=== PATIENT | male | born 1935 | race Caucasian/White ===

== ENCOUNTER → 2016-05-22 | Outpatient (REF) ==
[~2016-05-22] MED LIST: ALEVE 220MG220 MG PO; ASPIRIN 81M81 MG/TA2 PO; BRILINTA90 MG PO; CEPHALEXIN500 M1 PO; FLOMAX 0.40.4 MG/CAP PO; HCTZ 25MG TAB25 MG PO; LEVOXYL0.05 MG PO; MESTINON 6060 MG/TAB PO; NITROSTAT0.4 MG/TAB SL; NORVASC 5MG5 MG/TAB PO; VASOTEC20 MG PO; VESICARE10 MG PO; ZEBETA 5MG5 MG PO; ZEBETA10 MG PO; [UNRECOGNIZED DRUG - OTHER] PO
== END ==
LOC: ZLAB.WCH 16:01
DX: Z01.89 Encounter for other specified special examinations (principal)

== ENCOUNTER → 2016-05-23 | Outpatient (REF) | LOC: ZLAB.WCH 14:54 | DX: Z01.89 Encounter for other specified special examinations (principal) ==

== ENCOUNTER → 2016-06-06 | Outpatient (REF) | LOC: ZLAB.WCH 14:47 | DX: Z01.89 Encounter for other specified special examinations (principal) ==

== ENCOUNTER → 2017-05-21 | Outpatient (REF) ==
[2017-05-21 19:15] LABS: THYROID STIMULATING HORMONE 2.17 uIU/mL (0.465-4.680)
== END ==
LOC: ZLAB.WCH 18:06
PROVIDERS: Internal Medicine
DX: Z01.89 Encounter for other specified special examinations (principal)

== ENCOUNTER → 2018-04-10 | Outpatient (REF) | LOC: ZLAB.WCH 14:22 | DX: Z01.89 Encounter for other specified special examinations (principal) ==

== ENCOUNTER 2020-03-16 11:55 | Inpatient (IN) | payer MEDICARE, OTHER ==
[2020-03-16] VITALS (275 sets, daily range): BP systolic 119–132; BP diastolic 62–75; PULSE 77–80; TEMP 97.6–97.9; O2SAT 76–99
[~2020-03-16] VITALS: Ht 165.1 cm; Wt 97.9 kg
[2020-03-16 12:22] LABS: HEMATOCRIT 42.6 % (42.0-52.0); HEMOGLOBIN 14.7 g/dl (13.5-18.0); MEAN CELL VOLUME 98 fl (80.0-100.0); MEAN CORPUSCULAR HEMOGLOBIN 34 pg (27.0-31.0); MEAN CORPUSCULAR HGB CONC 35 g/dl (33.0-37.0); MEAN PLATELET VOLUME 10.9 fl (7.4-10.4); PLATELET COUNT 177 K/mm3 (130-400); RED BLOOD COUNT 4.35 M/mm3 (4.20-5.60); REDCELL DISTRIBUTION WIDTH-CV 12.8 % (11.5-14.5)
[2020-03-16 12:30] LABS: ARTERIAL BLD GAS O2 SATURATION 93.2 % (92-100); ARTERIAL BLOOD GAS BASE EXCESS -0.2 (-2-2); ARTERIAL BLOOD GAS HCO3 24.7 meq/L (22-26); ARTERIAL BLOOD GAS PCO2 41.6 mmHg (35-45); ARTERIAL BLOOD GAS PO2 64.2 mmHg (80-100); ARTERIAL BLOOD GAS pH 7.39 (7.35-7.45)
[2020-03-16 12:31] LABS: ALBUMIN 3.4 gm/dL (3.5-5.0); BILIRUBIN,TOTAL 1.2 mg/dL (0.0-1.0); CALCIUM 8.6 mg/dL (8.4-10.2); CREATININE, serum 1.54 (0.66-1.25); POTASSIUM 3.4 mmol/L (3.4-5.0); TOTAL PROTEIN 6.4 gm/dL (6.4-8.2)
[2020-03-16 12:40] LABS: BAND 36 % (0-10); NEUTROPHILS 60 % (42.0-75.2); PLATELET ESTIMATE NORMAL (NORMAL)
[2020-03-16] MEDS ORDERED: CARTIA XT240 MG PO (17:29)
[2020-03-16] MEDS ORDERED: CELEXA10 MG PO (17:29)
[2020-03-16] MEDS ORDERED: NAMENDA5 MG (17:30)
[2020-03-16] MEDS ORDERED: ATACAND 16M16 MG/TAB PO (17:30)
[2020-03-16] MEDS ORDERED: MYRBETR50MG PO (17:30)
[2020-03-16] MEDS ORDERED: CATAPRES 0.1MG0.1 MG PO (17:31)
[2020-03-16] MEDS ORDERED: ARICEPT10 MG PO (17:31)
[2020-03-16] MEDS ORDERED: EVOXAC30 MG PO (17:32)
[2020-03-16 21:03] LABS: ARTERIAL BLD GAS O2 SATURATION 89.5 % (92-100); ARTERIAL BLD GAS TCO2 CT 25.1; ARTERIAL BLOOD GAS BASE EXCESS -1.6 (-2-2); ARTERIAL BLOOD GAS HCO3 23.8 meq/L (22-26); ARTERIAL BLOOD GAS PCO2 42.5 mmHg (35-45); ARTERIAL BLOOD GAS PO2 57.2 mmHg (80-100); ARTERIAL BLOOD GAS pH 7.37 (7.35-7.45)
[2020-03-17] VITALS (421 sets, daily range): BP systolic 119–178; BP diastolic 92–103; PULSE 70–97; TEMP 96.6–98.3; O2SAT 43–99
[2020-03-17 02:50] LABS: ARTERIAL BLD GAS O2 SATURATION 88.1 % (92-100); ARTERIAL BLD GAS TCO2 CT 23.2; ARTERIAL BLOOD GAS BASE EXCESS -2.4 (-2-2); ARTERIAL BLOOD GAS HCO3 22.1 meq/L (22-26); ARTERIAL BLOOD GAS PCO2 37.2 mmHg (35-45); ARTERIAL BLOOD GAS PO2 55.1 mmHg (80-100); ARTERIAL BLOOD GAS pH 7.39 (7.35-7.45)
[2020-03-17 05:16] LABS: HEMATOCRIT 41.7 % (42.0-52.0); HEMOGLOBIN 14.1 g/dl (13.5-18.0); MEAN CELL VOLUME 97 fl (80.0-100.0); MEAN CORPUSCULAR HEMOGLOBIN 33 pg (27.0-31.0); MEAN CORPUSCULAR HGB CONC 34 g/dl (33.0-37.0); MEAN PLATELET VOLUME 10.4 fl (7.4-10.4); PLATELET COUNT 189 K/mm3 (130-400); RED BLOOD COUNT 4.28 M/mm3 (4.20-5.60); REDCELL DISTRIBUTION WIDTH-CV 13.1 % (11.5-14.5)
[2020-03-17 05:27] LABS: ALBUMIN 3.3 gm/dL (3.5-5.0); BILIRUBIN,TOTAL 0.7 mg/dL (0.0-1.0); CREATININE, serum 1.5 (0.66-1.25); MAGNESIUM 1.9 mg/dL (1.6-2.3); POTASSIUM 3.5 mmol/L (3.4-5.0); TOTAL PROTEIN 6.2 gm/dL (6.4-8.2)
[2020-03-17 06:02] LABS: BAND 23 % (0-10); LYMPHOCYTE 2 % (20.0-51.0); NEUTROPHILS 69 % (42.0-75.2); PLATELET ESTIMATE NORMAL (NORMAL)
--- NOTE | 2020-03-17 07:15 | NUR ---
RECEIVED REPORT FROM JAX MALCOLM. PT LYING IN BED ON BIPAP WITH FIO2 100%. VSS. CALL LIGHT WITHIN REACH.
--- NOTE | 2020-03-17 08:30 | NUR ---
DR CUEVAS AT BEDSIDE FOR ASSESSMENT. DR CUEVAS DISCUSSES INTUBATION AND CODE STATUS WITH PT AND RT AT BEDSIDE. PT STATES OK TO INTUBATE, RN AND RT MADE AWARE. ANESTHESIA NOTIFIED.
--- NOTE | 2020-03-17 09:25 | NUR ---
PT INTUBATED AT THIS TIME WITH ETT 8.0 21 AT LIP,BP 107/79, HR 103.
--- NOTE | 2020-03-17 09:44 | NUR ---
AFTER OGT INSERTION, TEN MINS LATER POX NOTED TO BE DECREASING WITH RT AND RN AT BEDSIDE. ORAL SUCTION NOTED TO BE EMESIS AND PT COUGHING AGAINST ETT. DR CUEVAS MADE AWARE, NEW ORDERS RECEIVED TO GIVE VECURONIUM 10MG AND THEN ATTEMPT OGT AGAIN BEFORE XRAY DONE. AFTER COMPLETION XRAY PERFORMED, DR CUEVAS LOOKS AT IMAGES AND STATES ETT AND OGT IN PLACE, OK TO USE. OGT SECRUED AT 70 AT LIPS AND PLACED TO LIS. FC PATENT AND DRAINING TO GRAVITY. FOOD SANITARIAN RESTRAINTS IN PLACE. SEE MAR.
[2020-03-17 09:48] LABS: COLLECTION METHOD CLEAN CATCH
[2020-03-17 10:13] LABS: AMORPHOUS CRYSTAL Present /uL; GRANULAR CAST >12 /lpf; PH 5 (5-8); SQUAMOUS EPITHELIAL None Seen /hpf; URINE BACTERIA Rare /hpf; URINE BILIRUBIN Negative (NEGATIVE); URINE BLOOD 1+ (NEGATIVE); URINE COLOR Yellow; URINE GLUCOSE Negative (NEGATIVE); URINE KETONE Negative (NEGATIVE); URINE LEUKOCYTE ESTERASE Negative (NEGATIVE); URINE NITRATE Negative (NEGATIVE); URINE PROTEIN(semi-quant) 2+ (NEGATIVE); URINE RBC 0-2 /hpf; URINE UROBILINOGEN Negative (NEGATIVE)
[2020-03-17 10:16] LABS: URINE APPEARANCE Hazy
--- NOTE | 2020-03-17 10:40 | NUR ---
DISCUSSED POC WITH DR CUEVAS TO TITRATE FIO2 TO KEEP POX 90-93%. RT MADE AWARE.
--- NOTE | 2020-03-17 10:45 | NUR ---
DR ROBLEDO AT BEDSIDE FOR ASSESSMENT.
--- NOTE | 2020-03-17 11:04 | NUR ---
The patient is positive for COVID and is now intubated. SW contacted the patient's son, Sherif (ph#[phone]), to complete intake. The patient lives alone in [place]. Sherif states that him and two of his sisters also live in [place]. Sherif reports that the patient is independent with ADLs and that he does not have any DME. The patient's PCP is Dr. Suraj Mckeon and he receives his medications from [facility]. The patient does not have a DPOA-HC in EMR, but Sherif states that the patient does have one completed and that he believes his three sisters are the patient's DPOA-HC. He states that Dr. Mckeon's office should have a copy of the document, but that he will contact his sisters to make sure they have it. Sherif states that the patient is not and that the patient has five children: Sherif Stein, Mely Shell (ph#[phone]), Lori Benton, Kaylene Green, and Noman Stein. WOLF contacted [facility] and requested a copy of the patient's DPOA-HC. The aircraft landing gear inspector reports that they do have one on file and will fax it to the ICU. SW notified Sherif. Sherif provided SW with Mely's phonen number. Sherif states that Mely has the document and can fax it to as well. WOLF contacted Mely and provided her with the fax number to the ICU. Mely states that she is at work right now and will fax the DPOA-HC to when she returns home. Mely states that she believes the patient's DPOA-HC is all of his children. SW to continue to follow.
[2020-03-17 11:19] LABS: ARTERIAL BLD GAS O2 SATURATION 90.8 % (92-100); ARTERIAL BLD GAS TCO2 CT 23.5; ARTERIAL BLOOD GAS BASE EXCESS -2.7 (-2-2); ARTERIAL BLOOD GAS HCO3 22.3 meq/L (22-26); ARTERIAL BLOOD GAS PCO2 39.6 mmHg (35-45); ARTERIAL BLOOD GAS PO2 58.4 mmHg (80-100); ARTERIAL BLOOD GAS pH 7.37 (7.35-7.45)
--- NOTE | 2020-03-17 12:02 | NUR ---
CONTACTED FIELD MARKETING SPECIALIST TO BRING ANOTHER POX PROBE FOR EAR. NOTED FINGERS ARE COOL TO TOUCH BUT SKIN REMAINS PALE. PEDAL PULSES NOTED +1. PT DOES COUGH WITH ORAL SUCTIONING.
--- NOTE | 2020-03-17 12:05 | NUR ---
RT CALLED TO BRING FOREHEAD PROBE FOR POX BECAUSE HAVING A HARD TIME GETTING A STRONG SIGNAL TO KEEP POX UP ON MONITOR.
--- NOTE | 2020-03-17 12:46 | NUR ---
ROSA CALLS TO FABIOLA PT'S BP 50/30s. RN TO BEDSIDE ALONG WITH RT AND COUNTER SALES REPRESENTATIVE TO FOLLOW OUTSIDE TO MAKE PHONE CALLS, MONITOR, AND ASSIST WITH GRABBING SUPPLIES. BP CUFF REPOSITIONED AND RECHECKED, NOTED BP TO STILL BE 50/30s. DR CUEVAS NOTIIFED BY MALENA, JAX, NEW ORDERS RECEIVED. FIELD PRODUCER AWARE AND TO UNIT FOR ASSISTANCE. DR ROBLEDO MADE AWARE.
--- NOTE | 2020-03-17 13:00 | NUR ---
DR. CUEVAS CALLED D/T BP BEING 50s/30s, ORDERS RECEIVED FOR LEVOPHED AND 500 CC NS BOLUS.
--- NOTE | 2020-03-17 13:20 | NUR ---
SON, LEISA, CALLED WITH UPDATE AND TO CONFIRM CODE STATUS. HE STATES THAT THEY DO NOT WANT COMPRESSIONS OR ANY OTHER LIFE SAVING EFFORTS IF NEEDED. WHILE ON THE CALL, JAX ROJAS, STATES THAT SHE CANNOT FEEL A PULSE. I, AGAIN, CONFIRM CODE STATUS WITH THE SON, HE STATES DO NOT RESUSCITATE. THIS IS RESPECTED. I COMMUNICATE THIS WITH JAX ROJAS AND KETURAH, RT WHO IS IN ROOM. DR. ROBLEDO CALLED TO COME CONFIRM PASSING.
--- NOTE | 2020-03-17 13:27 | NUR ---
AFTER DR ROBLEDO ARRIVES AND VERIFIES PASSING, TREVER CALLED AT 1327.
--- NOTE | 2020-03-17 13:28 | NUR ---
DR. ROBLEDO CALLS SON, LEISA TO INFORM OF PASSING. HE STATES THEY WANT [facility] IN [place], [place].
--- NOTE | 2020-03-17 14:01 | NUR ---
Call placed to [facility]. Patient will not be a candidate for transplant due to current dx of COVID-19. Reference number [id number]. Left message for patient's primary care to call this nurse back to make them aware of patients . Patient's nurse made aware that he is not a candidate and all lines can be pulled. Steam Power Plant Operator made aware. Family will call with home preference. Awaiting that call.
--- NOTE | 2020-03-17 14:57 | NUR ---
The patient suddenly. School Nurse was notified and [facility] was contacted. The patient is not a candidate. The patient's family chose [facility]. [facility] was contacted.
--- NOTE | 2020-03-17 15:20 | NUR ---
POST MORTEM CARE PROVIDED BY RN AND JAX GUY. PT PLACED ON GREEN ISOLATION BAG FOR TRANSFPORT WITH HOME. AWAITING ARRIVAL OF HOME.
--- NOTE | 2020-03-17 16:28 | NUR ---
PICKS UP PT AND PERSONAL BELONGINGS AT THIS TIME
== END 2020-03-17 16:28 | disposition expired | DRG 177 ==
LOC: COL.ER 11:55 → ICU 14:11
PROVIDERS: Emergency Medicine; Internal Medicine Critical Care Medicine; Internal Medicine Pulmonary Disease; Student in an Organized Health Care Education/Training Program; ADMIT Hospitalist
PROC: 02HV33Z Insertion of Infusion Device into Superior Vena Cava, Percutaneous Approach (ICD-10-PCS; principal; 2020-03-17)
PROC: 5A09357 Assistance with Respiratory Ventilation, Less than 24 Consecutive Hours, Continuous Positive Airway Pressure (ICD-10-PCS; 2020-03-17)
DX: U07.1 COVID-19 (principal); J96.01 Acute respiratory failure with hypoxia; J12.89 Other viral pneumonia; N17.9 Acute kidney failure, unspecified; E87.1 Hypo-osmolality and hyponatremia; I12.9 Hypertensive chronic kidney disease with stage 1 through stage 4 chronic kidney disease, or unspecified chronic kidney disease; N40.0 Benign prostatic hyperplasia without lower urinary tract symptoms; N32.81 Overactive bladder; N18.9 Chronic kidney disease, unspecified; Z95.0 Presence of cardiac pacemaker; R41.81 Age-related cognitive decline; I25.10 Atherosclerotic heart disease of native coronary artery without angina pectoris; G70.00 Myasthenia gravis without (acute) exacerbation; E03.9 Hypothyroidism, unspecified
CPT/HCPCS: 99223-AI; 99239; C1751; C9113; J0330; J1100; J1650; J1956; J2405; J2543; J2704; J3010; J3480; J7030; J7040; J7050; J7060